=== PATIENT | female | born 1945 | race Caucasian/White ===

== ENCOUNTER 2017-11-02 07:26 | Emergency (ER) | payer OTHER ==
[~2017-11-02] VITALS: Ht 154.9 cm; Wt 80.3 kg
--- NOTE | ~2017-11-02 | EKG ---
[place] [address] [facility] [email or web address] [address] ELECTROCARDIOGRAM REPORT Name: JUAN MANUEL LARKIN Room #: [facility]P [facility] SERVICESMarco#: [id number] Admission: 11/02/17 Attend Phys: Discharge: 11/02/17 Date of : 41 Report #: [id number] THIS REPORT FOR: //name// [facility] ED Test Date: 2017-11-02 Test Time: 07:50:26 Pat Name: JUAN MANUEL LARKIN Department: Room: Gender: F [employer]: [facility] [place] [facility] 1945 Requested By: Dawson Zeng Order Number: [id number] MD: Thiago Kemp Measurements Intervals [place] Rate: 53 P: NM: QRS: 7 QRSD: 93 T: 257 QT: 415 QTc: 390 Interpretive Statements Atrial fibrillation Borderline low voltage, extremity leads Borderline repolarization abnormality No previous ECG available for comparison Electronically Signed On 11-02-2017 12:21:10 CDT by Thiago Kemp [email or web address] <ELECTRONICALLY SIGNED> By: Thiago Kemp MD, [facility] 11/02/17 1221 0750 0750 Thiago Kemp MD, FACC /EPI
[2017-11-02 09:16] VITALS: BP 138/62
== END 2017-11-02 09:20 | disposition home or self-care (01) ==
LOC: ER 07:26
DX: I48.91 Unspecified atrial fibrillation (principal); R00.1 Bradycardia, unspecified; N18.6 End stage renal disease; Z99.2 Dependence on renal dialysis; R51 Headache; Z88.5 Allergy status to narcotic agent